=== PATIENT | female | born 1960 | race Caucasian/White ===

== ENCOUNTER 2022-10-23 02:29 | Inpatient (IN) | payer BC ==
[2022-10-23 03:36] VITALS: BMI 35.7
[2022-10-23] MEDS ORDERED: Acetaminophen 325 MG TAB PO PRN (03:54)
[2022-10-23] MEDS ORDERED: Ondansetron PF 4 MG/2 ML Vial IVP PRN (03:54)
[2022-10-23 04:40] LABS: #Lymphocytes 0.4 thou/uL (1.20-3.40); #Monocytes 0.1 thou/uL (0.11-0.59); #Neutrophils 14.7 thou/uL (1.40-6.50); %Basophils 0.1 % (0.0-1.0); %Eosinophils 0.2 % (0.0-10.0); %Lymphocytes 2.9 % (21.0-51.0); %Monocytes 0.9 % (0.0-10.0); Hemoglobin 11.6 g/dL (12.0-16.0); Mean Corpuscular HGB CONC 32.5 g/dL (32.0-36.0); Mean Corpuscular Hemoglobin 29.5 pg (27.0-31.0); Mean Corpuscular Volume 90.7 fl (78.0-98.0); Mean Platelet Volume 8.5 fL (7.4-10.4); Platelet Count 288 10x3/uL (130-400); RBC Distribution Width 11.9 % (11.5-14.5); Red Blood Cell (RBC) Count 3.94 mill/uL (4.20-5.40); White Blood Cell (WBC) Count 15.3 10x3/uL (4.8-10.8)
[2022-10-23 04:57] LABS: Anion Gap 20 mmol/L (10-20); BUN (Urea Nitrogen) 12 mg/dL (9.8-20.1); Calc. Creatinine Clearance 79 mL/min (70-130); Calcium 9.4 mg/dL (7.8-10.44); Carbon Dioxide 19 mmol/L (23-31); Chloride 100 mmol/L (98-107); Estimated GFR 58; Glucose 242 mg/dL (80-115); Potassium 2.9 mmol/L (3.5-5.1); Sodium 136 mmol/L (136-145)
[2022-10-23] MEDS: methylPREDNISolone Sod Succ 40 MG VIAL IVP SCH ×2 (06:03→17:52)
[2022-10-23] MEDS: Albuterol 200 PUFF (6.7GM INHALER) INH SCH ×4 (06:03→23:52)
[2022-10-23] MEDS ORDERED: Potassium Chloride 20 MEQ TAB PO SCH (08:00)
[2022-10-23 09:13] LABS: Magnesium 2.5 mg/dL (1.6-2.6)
[2022-10-24] MEDS: Albuterol 200 PUFF (6.7GM INHALER) INH SCH ×4 (06:08→23:18)
[2022-10-24] MEDS: methylPREDNISolone Sod Succ 40 MG VIAL IVP SCH ×2 (06:08→17:37)
[2022-10-24 07:21] LABS: Hemoglobin 12.2 g/dL (12.0-16.0); Mean Corpuscular HGB CONC 31.6 g/dL (32.0-36.0); Mean Corpuscular Hemoglobin 29.4 pg (27.0-31.0); Mean Corpuscular Volume 93.1 fl (78.0-98.0); Mean Platelet Volume 8.9 fL (7.4-10.4); Platelet Count 308 10x3/uL (130-400); RBC Distribution Width 12.2 % (11.5-14.5); Red Blood Cell (RBC) Count 4.14 mill/uL (4.20-5.40); White Blood Cell (WBC) Count 23.1 10x3/uL (4.8-10.8)
[2022-10-24 07:44] LABS: Anion Gap 14 mmol/L (10-20); BUN (Urea Nitrogen) 18 mg/dL (9.8-20.1); Calc. Creatinine Clearance 89 mL/min (70-130); Calcium 9.6 mg/dL (7.8-10.44); Carbon Dioxide 25 mmol/L (23-31); Chloride 104 mmol/L (98-107); Estimated GFR 67; Glucose 143 mg/dL (80-115); Magnesium 2.6 mg/dL (1.6-2.6); Potassium 4.8 mmol/L (3.5-5.1); Sodium 138 mmol/L (136-145)
[2022-10-24 08:28] LABS: Band 17 % (5-11); Lymphocytes 5 % (21-51); MDiff Complete? YES; Monocytes 1 % (0-10); Neutrophil 76 % (42-75); Platelet Morphology Comment Appears Adequate; RBC Morphology Normal; Reactive Lymphocytes 1 % (0-10)
[2022-10-24] MEDS: Benzonatate 100 MG CAP PO SCH ×2 (17:40→19:48)
[2022-10-24] MEDS: guaiFENesin/DM ER PO SCH (19:47)
[2022-10-25] MEDS: methylPREDNISolone Sod Succ 40 MG VIAL IVP SCH (06:08)
[2022-10-25 07:05] LABS: #Lymphocytes 1.7 thou/uL (1.20-3.40); #Monocytes 1.1 thou/uL (0.11-0.59); #Neutrophils 14.3 thou/uL (1.40-6.50); %Basophils 0.2 % (0.0-1.0); %Eosinophils 0.1 % (0.0-10.0); %Lymphocytes 9.7 % (21.0-51.0); %Monocytes 6.3 % (0.0-10.0); %Neutrophils 83.6 % (42.0-75.0); Mean Corpuscular HGB CONC 32.8 g/dL (32.0-36.0); Mean Corpuscular Hemoglobin 30.3 pg (27.0-31.0); Mean Corpuscular Volume 92.4 fl (78.0-98.0); Mean Platelet Volume 9.2 fL (7.4-10.4); Platelet Count 292 10x3/uL (130-400); RBC Distribution Width 12.3 % (11.5-14.5); Red Blood Cell (RBC) Count 3.95 mill/uL (4.20-5.40)
[2022-10-25 07:19] LABS: Magnesium 2.3 mg/dL (1.6-2.6)
[2022-10-25] MEDS: Albuterol 200 PUFF (6.7GM INHALER) INH SCH (08:02)
[2022-10-25 08:13] VITALS: BP 135/86; TEMP 97.6
[2022-10-25] MEDS: Benzonatate 100 MG CAP PO SCH (08:17)
[2022-10-25] MEDS: guaiFENesin/DM ER PO SCH (08:17)
== END 2022-10-25 10:18 | disposition home or self-care (01) | DRG 189 ==
LOC: T4-A 03:24 → OBSVTOIN 10-24 14:42
PROVIDERS: ADMIT Internal Medicine; ATTEND Internal Medicine
DX: J96.01 Acute respiratory failure with hypoxia (principal); J45.41 Moderate persistent asthma with (acute) exacerbation; Z20.822 Contact with and (suspected) exposure to COVID-19; M19.90 Unspecified osteoarthritis, unspecified site
CPT/HCPCS: 36415; 80048; 83735; 85025; 85379; 87633; 87804; J2920